=== PATIENT | female | born 1990 | race Caucasian/White ===

== ENCOUNTER 2017-10-14 06:20 | Inpatient (IN) | payer BC ==
[2017-10-14 06:41] VITALS: BMI 37.8
[2017-10-14] MEDS ORDERED: Bicitra 30 ML UDCUP PO SCH (07:15)
[2017-10-14] MEDS ORDERED: Ondansetron HCl/PF 4 MG/2 ML Vial IVP PRN ×3 (07:15→10:16)
[2017-10-14] MEDS ORDERED: Promethazine HCl 25 MG/ML VIAL IM PRN ×2 (07:15→10:16)
[2017-10-14] MEDS ORDERED: Butorphanol Tartrate 1 MG/ML VIAL SLOW IVP PRN (07:15)
[2017-10-14] MEDS ORDERED: CEFAZOLIN/Water 2 GM/20 ML SYRINGE SLOW IVP SCH (07:15)
[2017-10-14] MEDS: Lactated Ringer's 1,000 ML IV SCH ×2 (07:20→09:20)
--- NOTE | 2017-10-14 07:20 | PDOC.LDHP ---
Labor and Delivery H&P Chief complaint: contractions, loss of fluid HPI: Here for contractions and possible LOF HPI: 27 yo WF with EDC 10/21, scheduled for repeat CS tomorrow with Dr garcia , here for leakage and contractions. No VB, no headache, no visual changes. Current gestational age (weeks): 39 (1 day) Due date: 10/21/17 Dating criteria: last menstrual period Grav: 2 Para: 1 OB History Details: CS X 1, desires repeat (was scheduled tomorrow) Current complications: none Abnormal US findings: No Current medications: pre-aj vitamins Previous surgical history: low tranverse CS Allergies/Adverse Reactions: Allergies Allergy/AdvReac Type Severity Reaction Status Date / Time No Known Allergies Allergy Verified 06/12/15 22:15 Social history: none - Physical Exam Vital signs reviewed and normal: yes General: NAD Heart: RRR Lungs: CTAB Abdomen: gravid Extremeties: no edema FHT: category 1 Dillard contractions every: every 3-5 minutes - Vaginal Exam cm dilated: 1 Effacement: 50% Station: -1 - Assessment L&D Assessment: term patient in labor (Latent phase, suspect ROM clinically, clear fluid leaking.) - Plan Plan: admit to L&D, to OR for section (D/W Dr Garcia. Plan for repeat CS this AM when ready. Ancef and zamax for ABX. SCDs. I have ordered amnisure. Even if negative, presence of contractions and EGA of >39 weeks allows for repeat CS today rather than tomorrow. Anesthesia consulted.), anesthesia consult for pain management
[2017-10-14] MEDS ORDERED: Azithromycin 500 MG in Sodium Chloride 0.9% 250 ML 250 ML IVPB SCH (07:30)
[2017-10-14 07:44] LABS: Amnisure Test No Membranes Rupture (No Rupture)
[2017-10-14 07:45] LABS: Amnisure Internal Control QC ACCEPTABLE (ACCEPTABLE)
[2017-10-14 07:56] LABS: Hemoglobin 10.9 g/dL (12.0-16.0); Mean Corpuscular HGB CONC 33.8 g/dL (32.0-36.0); Mean Corpuscular Hemoglobin 28.8 pg (27.0-31.0); Mean Corpuscular Volume 85.1 fL (78.0-98.0); Platelet Count 192 thou/uL (130-400); RBC Distribution Width 11.6 % (11.5-14.5); Red Blood Cell (RBC) Count 3.79 mill/uL (4.20-5.40); White Blood Cell (WBC) Count 10.7 thou/uL (4.8-10.8)
[2017-10-14 08:38] LABS: HBSAg Index 0.19 S/CO (0-0.99); HIV (1/2) Antibody/Antigen Non-Reactive (NonReactive); HIV 1/2 INDEX 0.15 S/CO (<1.00); Hep B Surf Ag Non-Reactive S/CO (NonReactive); Syphilis Antibody Nonreactive (Nonreactive); Syphilis Antibody Index 0.03 S/CO (<1.00 Non-Reactive)
[2017-10-14] MEDS ORDERED: PHENYLEPHRINE-NS 100 MCG/ML 10 ML SYRINGE ONE ×2 (09:25→14:20)
[2017-10-14] MEDS ORDERED: Ondansetron HCl/PF 4 MG/2 ML Vial ONE ×2 (09:25→14:20)
[2017-10-14] MEDS ORDERED: Morphine PF 1 MG/ML SYR ONE (09:25)
[2017-10-14] MEDS ORDERED: Oxytocin 10 UNITS/ML VIAL ONE (09:25)
[2017-10-14] MEDS ORDERED: Ketorolac Tromethamine 30 MG/ML VIAL ONE ×2 (09:25→14:20)
[2017-10-14] MEDS ORDERED: Bupivacaine 0.75% W/DEXTROSE 8.25% 2 ML AMP ONE (09:35)
[2017-10-14] MEDS ORDERED: Lidocaine 1% PF 5 ML VIAL ONE (09:41)
[2017-10-14] MEDS ORDERED: Naloxone HCl 0.4 mg/ml Vial IVP PRN ×2 (10:16)
[2017-10-14] MEDS ORDERED: Meperidine HCl/PF 25 MG/ML VIAL SLOW IVP PRN (10:16)
[2017-10-14] MEDS ORDERED: HYDROmorphone 2 MG/ML VIAL SLOW IVP PRN (10:16)
[2017-10-14] MEDS ORDERED: Ketorolac Tromethamine 30 MG/ML VIAL IVP PRN (10:16)
[2017-10-14] MEDS ORDERED: Eucerin (Mineral Oil/Petrolatum,White) 30 gm Jar TOP PRN (10:16)
[2017-10-14] MEDS ORDERED: Promethazine HCl 25 MG SUPP PR PRN (10:16)
[2017-10-14] MEDS ORDERED: Naloxone HCl 0.4 mg/ml Vial IV PRN (10:16)
[2017-10-14] MEDS ORDERED: Communication Order-Pharmacy FS SCH (10:30)
[2017-10-14] MEDS ORDERED: diphenhydrAMINE 25 MG CAP PO PRN (10:30)
[2017-10-14] MEDS ORDERED: Simethicone Chewable 80 MG TAB PO PRN (10:30)
[2017-10-14] MEDS ORDERED: Adacel (T-DAP) 0.5 ML VIAL IM ONE (10:30)
[2017-10-14] MEDS ORDERED: Misoprostol 200 MCG TAB PR PRN (10:30)
[2017-10-14] MEDS ORDERED: Lanolin Ointment 7 GM TUBE TOP PRN (10:30)
[2017-10-14] MEDS ORDERED: Ketorolac Tromethamine 30 MG/ML VIAL IVP SCH (10:30)
[2017-10-14] MEDS ORDERED: traMADol HCl 50 MG TAB PO PRN (10:31)
[2017-10-14] MEDS ORDERED: Meperidine HCl/PF 25 MG/ML VIAL ONE (12:09)
[2017-10-14] MEDS: Ibuprofen 800 MG TAB PO SCH (14:34)
[2017-10-14] MEDS: diphenhydrAMINE 50 MG/ML VIAL IVP PRN (21:22)
[2017-10-15] MEDS: Lactated Ringer's 1,000 ML IV SCH ×3 (00:40→16:53)
[2017-10-15] MEDS: diphenhydrAMINE 50 MG/ML VIAL IVP PRN (01:17)
[2017-10-15] MEDS: Docusate Calcium (SURFAK) 240 MG CAP PO SCH ×3 (01:20→22:02)
[2017-10-15] MEDS: Ibuprofen 800 MG TAB PO SCH ×4 (02:00→17:05)
[2017-10-15 04:49] LABS: Hemoglobin 10.1 g/dL (12.0-16.0); Mean Corpuscular HGB CONC 33.6 g/dL (32.0-36.0); Mean Corpuscular Volume 86.2 fL (78.0-98.0); Mean Platelet Volume 8.6 fL (7.4-10.4); Platelet Count 144 thou/uL (130-400); RBC Distribution Width 11.7 % (11.5-14.5); Red Blood Cell (RBC) Count 3.48 mill/uL (4.20-5.40); White Blood Cell (WBC) Count 10.3 thou/uL (4.8-10.8)
--- NOTE | 2017-10-15 08:08 | PDOC.PP ---
Post Progress Note Post Day #: 1 PO intake tolerated: yes Flatus: yes Ambulation: yes Vital Signs (12 hours) Temp Pulse Resp BP Pulse Ox 10/15/17 04:40 97.9 F 74 18 10/15/17 02:00 18 10/15/17 00:45 98.6 F 74 20 101/56 L 10/14/17 22:15 18 10/14/17 20:40 98.0 F 78 20 98/55 L 97 Weight Weight 220 lb - Physical Examination General: NAD Cardiovascular: no m/r/g, RRR Respiratory: clear to auscultation bilaterally, non-labored breathing Abdominal: + bowel sounds, lochia, no distention, appropriately TTP Skin: CS incision dry & intact, no rash Result Diagrams: 10/15/17 04:31 Additional Labs: Post Labs Blood Type A POSITIVE 10/14/17 07:39 Hep Bs Antigen Non-Reactive S/CO (NonReactive) 10/14/17 07:39 - Assessment/Plan Doing well post op day 1 from repeat c/s in labor. Routine post op care. Anticipate discharge in AM.
[2017-10-15] MEDS: Prenatal Vitamin 1 TAB PO SCH (09:14)
[2017-10-15] MEDS: traMADol HCl 50 MG TAB PO PRN ×2 (10:50→17:49)
[2017-10-16] MEDS: Ibuprofen 800 MG TAB PO SCH ×3 (00:04→14:21)
[2017-10-16] MEDS: Lactated Ringer's 1,000 ML IV SCH ×2 (00:31→09:41)
[2017-10-16] MEDS: traMADol HCl 50 MG TAB PO PRN (05:44)
[2017-10-16 08:03] VITALS: BP 118/63; TEMP 97.9
--- NOTE | 2017-10-16 08:30 | PDOC.PP ---
Post Progress Note Post Day #: 2 PO intake tolerated: yes Flatus: yes Ambulation: yes Vital Signs (12 hours) Temp Pulse Resp BP 10/16/17 08:02 97.9 F 74 20 118/63 10/16/17 00:10 98.6 F 82 20 100/57 L 10/15/17 20:30 98.1 F 75 20 118/63 Weight Weight 220 lb - Physical Examination General: NAD Cardiovascular: no m/r/g, RRR Respiratory: clear to auscultation bilaterally, non-labored breathing Abdominal: + bowel sounds, lochia, no distention, appropriately TTP Result Diagrams: 10/15/17 04:31 Additional Labs: Post Labs Blood Type A POSITIVE 10/14/17 07:39 Hep Bs Antigen Non-Reactive S/CO (NonReactive) 10/14/17 07:39 - Assessment/Plan doing well post op day 2 from repeat c/s. discharge home. armando out post op day 7 and 6 week post .
[2017-10-16] MEDS: Docusate Calcium (SURFAK) 240 MG CAP PO SCH (09:41)
[2017-10-16] MEDS: Prenatal Vitamin 1 TAB PO SCH (09:41)
== END 2017-10-16 14:15 | disposition home or self-care (01) | DRG 766 ==
LOC: L&D/OP 06:20 → L&D 07:46 → 3SW 13:22
PROVIDERS: ADMIT Obstetrics & Gynecology; ATTEND Obstetrics & Gynecology
PROC: 10D00Z1 Extraction of Products of Conception, Low, Open Approach (ICD-10-PCS; principal; 2017-10-14)
PROC: 4A0HXCZ Measurement of Products of Conception, Cardiac Rate, External Approach (ICD-10-PCS; 2017-10-14)
DX: O34.211 Maternal care for low transverse scar from previous cesarean delivery (principal); Z3A.39 39 weeks gestation of pregnancy; Z37.0 Single live birth
CPT/HCPCS: 36415; 51702; 84112; 85027; 86780; 86850; 86900; 86901; 87340; 87389; J0456; J1200; J1885; J2001; J2175; J2274; J2405; J2590; J3490; J7050